=== PATIENT | male | born 1985 | race Caucasian/White ===

== ENCOUNTER 2016-07-27 16:59 | Emergency (ER) | payer SELFPAY ==
[~2016-07-27] VITALS: Ht 175.3 cm; Wt 72.9 kg
[2016-07-27 17:28] VITALS: BP 150/83
[2016-07-27] MEDS ORDERED: HYDROcodone/APAP 5/325 TABLET ONE (18:45)
[2016-07-27] MEDS ORDERED: KETOROLAC 30 MG/1 ML ONE (18:45)
[2016-07-27] MEDS ORDERED: HYDROcodone/APAP 5/325 TABLET PO ONE (19:00)
[2016-07-27] MEDS ORDERED: KETOROLAC 30 MG/1 ML IM ONE (19:00)
== END 2016-07-27 19:01 | disposition home or self-care (01) ==
LOC: ED 18:45
DX: K02.9 Dental caries, unspecified (principal)
CPT/HCPCS: 96372; 99283; J1885

== ENCOUNTER 2017-12-18 14:13 | Emergency (ER) | payer SELFPAY ==
[~2017-12-18] VITALS: Ht 175.3 cm; Wt 70.0 kg
[2017-12-18 14:18] VITALS: BP 118/70
[2017-12-18] MEDS ORDERED: BACITRACIN ZINC OINT 500U/GM, 0.9 GM ONE (14:34)
[2017-12-18] MEDS ORDERED: DIPH,PERTUSS(ACELL),TET VAC/PF 0.5 ML IM-VACC ONE ×2 (14:38→15:00)
[2017-12-18] MEDS ORDERED: CEFAZOLIN 1,000 MG IM ONE (15:00)
[2017-12-18] MEDS ORDERED: CEFAZOLIN 1,000 MG ONE (15:01)
== END 2017-12-18 15:20 | disposition home or self-care (01) ==
LOC: ED 15:15
DX: S62.635B Displaced fracture of distal phalanx of left ring finger, initial encounter for open fracture (principal); W23.0XXA Caught, crushed, jammed, or pinched between moving objects, initial encounter; Y93.89 Activity, other specified; Y92.89 Other specified places as the place of occurrence of the external cause; Y99.8 Other external cause status; F17.200 Nicotine dependence, unspecified, uncomplicated
CPT/HCPCS: 29130; 73140; 90471; 90715; 96372; 99284; J0690

== ENCOUNTER 2018-01-03 13:02 | Emergency (ER) | payer BC, OTHER ==
[~2018-01-03] VITALS: Ht 175.3 cm; Wt 73.5 kg
[2018-01-03 13:14] VITALS: BP 119/75
[2018-01-03 14:52] LABS: BASOPHILS # (AUTO) 0.07 x10^3/uL (0-0.1); BASOPHILS % (AUTO) 1 % (0-1); EOSINOPHILS # (AUTO) 0.13 x10^3/uL (0-0.4); EOSINOPHILS % (AUTO) 1 % (1-7); LYMPHOCYTES # (AUTO) 1.71 x10^3/uL (1-3.4); LYMPHOCYTES % (AUTO) 18 % (22-44); MD NO; MEAN CORPUSCULAR HEMOGLOBIN 30.3 pg (27.5-34.5); MEAN CORPUSCULAR HGB CONC 34.4 g/dL (33.2-36.2); MEAN CORPUSCULAR VOLUME 88.2 fL (81-97); MEAN PLATELET VOLUME 8.3 fL (7.4-10.4); MONOCYTES # (AUTO) 0.62 x10^3/uL (0.2-0.8); MONOCYTES % (AUTO) 6 % (2-9); NEUTROPHILS # (AUTO) 7.05 x10^3/uL (1.8-6.8); NEUTROPHILS % (AUTO) 74 % (42-75); PLATELET COUNT 227 x10^3/uL (130-400); RED CELL DISTRIBUTION WIDTH 12.7 % (9.4-14.8)
[2018-01-03 14:55] LABS: ANION GAP 5 mmol/L (5-15); CALCIUM 9.8 mg/dL (8.5-10.1); CHLORIDE 105 mmol/L (98-107)
[2018-01-03 14:59] LABS: ALANINE AMINOTRANSFERASE 45 U/L (12-78); ALKALINE PHOSPHATASE 74 U/L (45-117); BILIRUBIN,TOTAL 0.5 mg/dL (0.2-1.0); CREATININE 0.87 mg/dL (0.7-1.3); TOTAL PROTEIN 7.7 g/dL (6.4-8.2)
[2018-01-03] MEDS ORDERED: OMNIPAQUE 350 MG/ML, 100ML BOTTLE ONE (15:27)
== END 2018-01-03 16:29 | disposition home or self-care (01) ==
LOC: ED 15:10
DX: K62.5 Hemorrhage of anus and rectum (principal); R10.32 Left lower quadrant pain; R19.7 Diarrhea, unspecified
CPT/HCPCS: 36415; 74177; 80053; 85025; 99285; Q9967

== ENCOUNTER 2020-05-15 11:26 | Emergency (ER) | payer SELFPAY ==
[~2020-05-15] VITALS: Ht 175.3 cm; Wt 75.0 kg
--- NOTE | 2020-05-15 12:49 | NUR ---
COLUMNIST: PT TO ROOM FROM LOBBY
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
[2020-05-15] MEDS ORDERED: DIPH,PERTUSS(ACELL),TET VAC/PF 0.5 ML IM-VACC ONE (14:00)
[2020-05-15 14:21] VITALS: BP 154/90
== END 2020-05-15 14:23 | disposition home or self-care (01) ==
LOC: ED 14:00
DX: S31.813A Puncture wound without foreign body of right buttock, initial encounter (principal); Z20.822 Contact with and (suspected) exposure to COVID-19; I10 Essential (primary) hypertension; X58.XXXA Exposure to other specified factors, initial encounter; Y93.89 Activity, other specified; Y92.098 Other place in other non-institutional residence as the place of occurrence of the external cause; Y99.8 Other external cause status
CPT/HCPCS: 87635; 99283